=== PATIENT | male | born 1940 | race Caucasian/White ===

== ENCOUNTER 2023-12-31 08:33 | Outpatient (RCR) | payer MEDICARE, SELFPAY | END 2023-12-31 23:59 | disposition home or self-care (01) | LOC: RPT 08:33 | PROVIDERS: ATTENDING PHYSICIAN Physical Medicine & Rehabilitation; FAMILY PHYSICIAN Internal Medicine | DX: R26.2 Difficulty in walking, not elsewhere classified (principal); M75.01 Adhesive capsulitis of right shoulder; M25.511 Pain in right shoulder; Z73.6 Limitation of activities due to disability | CPT/HCPCS: 97110; 97161 ==

== ENCOUNTER 2024-01-29 13:54 | Outpatient (RCR) | payer MEDICARE, SELFPAY | END 2024-01-29 23:59 | disposition home or self-care (01) | LOC: RPT 13:54 | PROVIDERS: ATTENDING PHYSICIAN Physical Medicine & Rehabilitation; FAMILY PHYSICIAN Internal Medicine | DX: M75.01 Adhesive capsulitis of right shoulder (principal); M25.511 Pain in right shoulder; Z73.6 Limitation of activities due to disability | CPT/HCPCS: 97010; 97110; 97112; 97140 ==

== ENCOUNTER 2024-07-25 16:06 | Emergency (ER) | payer MEDICARE, SELFPAY ==
[2024-07-25 16:29] VITALS: BP 167/87
--- NOTE | 2024-07-25 17:50 | ED.GENMED ---
History of Present Illness
General
Chief Complaint: Skin Surface Trauma
Source: patient
Exam Limitations: none
Time Seen by Provider: 07/25/24 17:20
Nursing documentation reviewed up to this point in time: agreed with
History of Present Illness
History of Present Illness:
PT IS A 84 Y/O M
h/o AAA, afib on warfarin, CAD
here with skin tear L anterior lower leg whne he slipped off a chair he was standing on and scraped his rivera against the chair
he had bleedin but it is controlled
tetanus is likeyl UTD according to
no head injury, weakness, numbness to the leg
has chornic PVD and poor skin wound healing by history
Past History
Past History
ED Past Medical History: Arrthythmia (afiub), CAD, Cancer (Prostate) and Other (AAA,)
ED Past Surgical History: Urological
Social History
Tobacco: Former smoker
Personal:
Living: with family
Review of Systems
Review of Systems
Allergies reviewed?: Yes
All Other Systems: Not applicable
Phy Exam
Physical Exam
Physical Exam:
GENERAL: Alert , in no apparent distress, comfortable at rest
HEAD: NCAT
CV: 2+ DP PULSES B/L palpable pulses, warm foot
NEUROLOGICAL: Alert and oriented, no focal neuro deficits, , 5/5 strength, sensation intact, ambulation slight limp right leg
SKIN: Warm and dry, chornic hyperpigemtnation assicated with PVD skin changes
flap skin tear approx 7 cm L anterior rivera
no bleeding
MUSCULOSKELETAL: full ROM knee, ankle foot on L
PSYCH: Normal and appropriate interaction.
Course
Vital Signs
Initial and Last Documented VS:
Initial Vital Signs
Temp Pulse Resp BP Pulse Ox
36.5 C 79 18 167/87 96
07/25/24 16:29 07/25/24 16:29 07/25/24 16:29 07/25/24 16:29 07/25/24 16:29
Last Documented Vital Signs
Temp Pulse Resp BP Pulse Ox
36.5 C 79 18 167/87 96
07/25/24 16:29 07/25/24 16:29 07/25/24 16:29 07/25/24 16:29 07/25/24 16:29
MDM/Problems Addressed
Differential Diagnosis Includes:
laceration, skin tear
MDM/Problems Addressed:
84 y/o M
on warfarin
here with skin tear LLL today
bleeding stopped
slid off a chair
denied hitting head
wound has a superficial flap that is too thin for sutures, it tears when trying to stretch it over the wound
instead, irreigated and sterristripped and dressed with nonstick dressing
wound care instructions
inr just checked; slightly low; on his warfarin dose
*Critical Care Note
Total Time (30-74mins, 75-104mins- exclusive of procedures): Not Applicable
ED Attending Note
-
Portions of this chart may have been created with voice recognition software.� Occasional wrong word or��sound alike� substitutions may have occurred due to the inherent limitations of voice recognition software.
Discharge Plan
Departure
Patient Disposition: Home (Routine Discharge)
Date of Disposition: 07/25/24
Time of Disposition: 18:05
Patient with high blood pressure during this ER visit?: Yes
Condition: Fair
Discharge Problem:
Noninfected skin tear of left leg
Instructions: Wound Care (DC), BLOOD PRESSURE
Referrals:
Hipolito Jorge MD [Family Provider] - Follow up in 2-3 days
Activity Restrictions/Additional Instructions:
KEEPT HE WOUND CLENA AND DRY FOR 2 DAYS AND KEEP IT COVERED
AFTER THAT YOU CAN GET THE WOUND WET IN THE SHOWER
THE STERRISTRIPS WILL PEEL UP AND FALL OFF IN 3-5 DAYS
FOLLOW UP WITH YOUR FAMILY DOCTOR NEEEDED FOR WOUND CARE OR SEE THE WOUND CARE CENTER
RETURN FOR ANY COCNERNS.
Interventions
Interventions:
ED-Skin Assessment Last Done: 07/25/24 17:29
Discharge Date and Time
Print Language: SLOVAK
== END 2024-07-25 18:26 | disposition home or self-care (01) ==
LOC: EMR 16:06
PROVIDERS: EMERGENCY PHYSICIAN Emergency Medicine; FAMILY PHYSICIAN Internal Medicine
DX: S81.812A Laceration without foreign body, left lower leg, initial encounter (principal); L08.9 Local infection of the skin and subcutaneous tissue, unspecified; W22.8XXA Striking against or struck by other objects, initial encounter; I25.10 Atherosclerotic heart disease of native coronary artery without angina pectoris; I48.91 Unspecified atrial fibrillation; I73.9 Peripheral vascular disease, unspecified; Z79.01 Long term (current) use of anticoagulants; Z87.891 Personal history of nicotine dependence; Z86.79 Personal history of other diseases of the circulatory system
CPT/HCPCS: 99282

== ENCOUNTER 2024-12-30 18:43 | Inpatient (IN) | payer MEDICARE, SELFPAY ==
[2024-12-30] VITALS (7 sets, daily range): BP systolic 102–138; BP diastolic 66–71; BMI 25.1; BMI 24.3
[2024-12-30 13:16] LABS: % Basophils 0.1 % (0-2); % Eosinophils 0.3 % (0-6); % Immature Granulocytes 0.6 % (0-0.5); % Lymphocytes 9.4 % (20.5-51.1); % Monocytes 9.4 % (1.7-9.3); % Neutrophils 80.2 % (42.2-75.2); Absolute Immature Granulocytes 0.1 10^3/uL (0-0.05); Absolute Neutrophils 8.2 10^3/uL (1.4-6.5); Hematocrit 46.1 % (39.0-52.0); Hemoglobin 16.6 g/dL (13.0-18.0); Mean Corpuscular Hgb 32.2 pg (27.0-31.0); Mean Corpuscular Volume 89.5 fL (80.0-94.0); Mean Platelet Volume 9.5 fL (7.4-10.4); Nucleated Red Blood Cells % 0 % (-); Platelet Count 205 10^3/uL (130-400); Red Blood Cell Count 5.15 10^6/uL (4.70-6.10); Red Cell Dist. Width 13.2 % (11.5-14.5); White Blood Cell Count 10.2 10^3/uL (4.8-10.8)
[2024-12-30 13:30] LABS: PT 75.3 Sec (11.4-14.6)
[2024-12-30 13:38] LABS: NT-proBNP 776 pg/ml
[2024-12-30 14:04] LABS: ALT (SGPT) 33 U/L (0-50); AST (SGOT) 27 U/L (17-59); Albumin 3.7 g/dl (3.5-5.0); Alkaline Phosphatase 83 U/L (38-126); Blood Urea Nitrogen 48 mg/dl (9-20); Calcium 8.7 mg/dl (8.4-10.2); Carbon Dioxide 20 mmol/L (22-30); Chloride 110 mmol/L (98-107); Glucose 111 mg/dl (70-99); Potassium 3.9 mmol/L (3.5-5.1); Sodium 137 mmol/L (135-145); Total Bilirubin 1.1 mg/dl (0.2-1.3); Total Protein 6.2 g/dl (6.3-8.2)
[2024-12-30 14:05] LABS: INR > 8.0
--- NOTE | 2024-12-30 15:24 | ED.GENMED ---
History of Present Illness
General
Chief Complaint: Breathing Problem
Source: patient, spouse and family
Exam Limitations: none
Time Seen by Provider: 12/30/24 14:59
Nursing documentation reviewed up to this point in time: agreed with
History of Present Illness
History of Present Illness:
84-year-old male COPD not on home oxygen not on chronic steroids his cough and shortness of breath for a month took a Medrol Dosepak, with some relief, given an inhaler which she did not use, no antibiotics said a 6 pound weight loss, sleeping a lot
not eating General Malaise pulse ox 88% with loss of taste and appetite, additionally his INR is elevated told not to take his Coumadin for few days said no overt bleeding no falls
Past History
Past History
ED Past Medical History: Arrthythmia (afiub), CAD, Cancer (Prostate), COPD and Other (AAA,)
ED Past Surgical History: Urological
Social History
Tobacco: Former smoker
Alcohol: None
Drug: None
Personal:
Living: with family
Employment: Retired
Review of Systems
Review of Systems
All Other Systems: Not applicable
Constitutional: Reports fatigue; Denies chills
Respiratory: Reports cough and trouble breathing
Cardiac: Reports no symptoms
ABD/GI: Reports anorexia
: Reports no symptoms
Musculoskeletal: Reports no symptoms
Skin: Reports no symptoms
Neurological: Reports weakness
Endocrine: Reports no symptoms
Hematologic/Lymphatic: Reports no symptoms
Phy Exam
Physical Exam
Physical Exam:
Physical Exam
General: Dyspneic male
Neck: No JVD
Heart: Irregular
Lungs: Wheezing the right base
Abdomen: Not tender
Neuro: alert and oriented. no focal neurological deficits
Skin: no rash
Psychiatric: well kept. interactive and cooperative
Extremities: no edema. no calf tenderness.
Scores
Heart Failure Risk
Heart Failure Risk Score: Not Applicable
Course
Orders/Labs/Results
Orders:
Orders
12/30/24 12:54
EKG [Electrocardiogram (*1)] Urgent
Reason for Study: Shortness of Breath
EKG- Treatment ONCE
CXR2 [CR Chest - 2 Views ] Urgent
Comment:
Reason For Exam: SOB/cough
12/30/24 13:06
CMP [Comprehensive Metabolic Panel] Urgent
Complete Blood Count/With Diff Urgent
INR [Prothrombin Time] Urgent
NT-proBNP Urgent
12/30/24 15:16
CefTRIAXone [Rocephin] 1,000 mg IV NOW STA
Doxycycline [Vibramycin] 100 mg PO NOW STA
12/30/24 15:17
Sputum Culture [Respiratory Culture/Gram Stain] Urgent
JASVIR Source: Sputum
Specimen Description:
Ipratropium/Albuterol Sulfate [Duoneb] 3 ml INH R NOW STA
12/30/24 15:19
COVID-19 Antigen Urgent
Source: Nasal Swab
Influenza A+B Rapid Molecular Urgent
JASVIR Source: Nasal Swab
Specimen Description:
Dexamethasone Sod Phosphate [Decadron] 10 mg IV NOW STA
12/30/24 15:30
Blood Culture Q30M
JASVIR Source: Blood/Venous
Specimen Description:
12/30/24 16:00
Blood Culture Q30M
JASVIR Source: Blood/Venous
Specimen Description:
Abnormal Lab Results
12/30/24
13:06
MCH 32.2 H pg
(27.0-31.0)
Abs Immat Gran (auto) 0.1 H 10^3/uL
(0-0.05)
Absolute Neuts (auto) 8.2 H 10^3/uL
(1.4-6.5)
Absolute Lymphs (auto) 1.0 L 10^3/uL
(1.2-3.4)
Absolute Monos (auto) 1.0 H 10^3/uL
(0.1-0.6)
Immature Gran % 0.6 H %
(0-0.5)
Neutrophils % 80.2 H %
(42.2-75.2)
Lymphocytes % 9.4 L %
(20.5-51.1)
Monocytes % 9.4 H %
(1.7-9.3)
PT 75.3 H Sec
(11.4-14.6)
INR > 8.0 H*
Chloride 110 H mmol/L
(98-107)
Carbon Dioxide 20 L mmol/L
(22-30)
BUN 48 H mg/dl
(9-20)
Creatinine 1.6 H mg/dL
(0.7-1.3)
Glucose 111 H mg/dl
(70-99)
Total Protein 6.2 L g/dl
(6.3-8.2)
12/30/24 13:06
12/30/24 13:06
Vital Signs
Initial and Last Documented VS:
Initial Vital Signs
Temp Pulse Resp BP Pulse Ox
98.2 F 93 18 119/68 93
12/30/24 12:56 12/30/24 12:56 12/30/24 12:56 12/30/24 12:56 12/30/24 12:56
Last Documented Vital Signs
Temp Pulse Resp BP Pulse Ox
98.2 F 71 16 122/71 95
12/30/24 12:56 12/30/24 15:08 12/30/24 15:08 12/30/24 15:08 12/30/24 15:08
MDM/Problems Addressed
Differential Diagnosis Includes:
Pneumonia bronchitis doubt PE possibly heart failure
MDM/Problems Addressed:
Cough shortness of breath hypoxia
Chronic conditions affecting care: Cardiomyopathy, Arrhythmia and COPD
Acute Exacerbation and/or Progression of Chronic Illness: Cardiomyopathy and COPD
*Radiology
Radiology exam reviewed: radiology read reviewed
*Pulse Oximetry
Patient hypoxic: yes
Comment: 88
*EKG
Interpreted by ED Provider?: Yes
Interpretation: abnormal
Comparison EKG: no comparison EKG present
Heart Rate: 80
Rate: normal
Rhythm: a-fib
Ischemia: non-specific ST changes
*Wood Engraver Interpretation
Rate: normal
Interpretation: normal
Heart Rate: 80
Rhythm: a-fib
*Critical Care Note
Total Time (30-74mins, 75-104mins- exclusive of procedures): 30
Update Note
Update Note:
Update patient clinically with pneumonia confirmed radiographically been on steroids we will add inhalers, antibiotics low threshold to admit today severity of illness hypoxia
ED Attending Note
-
Portions of this chart may have been created with voice recognition software.� Occasional wrong word or��sound alike� substitutions may have occurred due to the inherent limitations of voice recognition software.
Discharge Plan
Departure
Referrals:
Hipolito Jorge MD [Family Provider, Internal Medicine]
Interventions
Interventions:
*General Assessment Last Done: 12/30/24 12:56
ED- Cardiac Assessment Last Done: 12/30/24 15:14
ED- Pulmonary Assessment Last Done: 12/30/24 15:14
Discharge Date and Time
Print Language: JAMAICAN
[2024-12-30] MEDS: DECADRON 10 MG IV (15:40)
[2024-12-30] MEDS: ROCEPHIN 1000 MG IV (15:41)
[2024-12-30] MEDS: DUONEB 3 ML INH ×2 (15:42→19:01)
[2024-12-30] MEDS: VIBRAMYCIN 100 MG PO (15:42)
[2024-12-30 16:49] LABS: COVID-19 Antigen Negative (Negative)
--- NOTE | 2024-12-30 17:11 | HPS.HSE ---
Family Physician
-
Family Physician: Hipolito Jorge MD
Chief Complaint
-
Cough, shortness of breath
History of Present Illness
This is a 84-year-old male patient with past medical history of A-fib on warfarin, COPD, Hx of prostate cancer who presents to the ED with concerns of cough and shortness of breath on exertion. He states that for the past 1 month he has been
experiencing a productive cough. Last Thursday he had seen his PCP who had started him on a steroid taper, Mucinex along with an albuterol inhaler which provided him with only mild relief. He denied any symptoms of fever, nausea/vomiting or
abdominal pain. He also denies any overt signs of bleeding. Last night, he noticed that his pulse ox was 88% and along with his shortness of breath which prompted him to present to the ED hospital. He does not use any oxygen at home at present but
was admitted to [facility] with similar complaints of cough/shortness of breath last year where he was sent home with oxygen therapy but has not needed to use it in a while.
He does admit to diarrhea during the past 1 week which has been improving.
He states that last night he was called by the customer logistics manager office and was told that his INR was high and to hold his warfarin until he is seen in the office.
Medical History
Past Medical History
Past Medical History: Reports Arrhythmia (Atrial fibrillation), CAD, Cancer (Prostate cancer), COPD, Hypercholesterolemia, Hypothyroidism and Other (AAA, COPD)
Past Surgical History: Reports Appendectomy, Cardiac (CABG) and Urological
Social History
Tobacco: Former Smoker (Smoked since 11 years of age with 1 pack/day, quit at 52yo)
Alcohol: Daily (Drinks 1 beer with dinner every day)
Drug: None
Personal:
Living: With Family
Family History
Family History: Not pertinent
Allergies / Home Medications
Allergies reflects when Allergies were last updated in [employer].
Home Medications with original date entered in [employer]
Allergy/Medication List:
Allergies
Allergy/AdvReac Type Severity Reaction Status Date / Time
codeine Allergy Unknown Unknown Verified 12/30/24 12:55
Home Medications
warfarin 5 mg tablet 5 mg PO DAILY 12/30/24
If medication reconciliation has not been performed, why?: Other (Med reconciliation pending)
Review of Systems
-
Constitutional: Denies Fever or Night Sweats
Respiratory: Reports Cough and Trouble Breathing
Cardiac: Denies Chest Pain
Abdomen/GI: Reports Diarrhea; Denies Abdominal Pain, Nausea or Vomiting
Hematologic/Lymphatic: Denies Bleeding
Physical Exam
Vital Signs
Vital Signs
Temp Pulse Resp BP Pulse Ox
98.2 F 73 16 108/66 94
12/30/24 12:56 12/30/24 16:15 12/30/24 15:30 12/30/24 16:00 12/30/24 16:15
Physical Exam
General: Well Developed and No Apparent Distress
HEENT: NormoCephalic and Anicteric
Respiratory: Wheezes (Left-sided wheezing)
Cardiac: S1/S2 and Regular Rhythm
GI: Soft, Non Tender and Non Distended
Musculoskeletal: No Clubbing, No Cyanosis and No Edema
Skin: Warm and Dry
Neuro: Awake, Alert and Oriented
Psych: Calm
Laboratory Results
-
12/30/24 13:06
12/30/24 13:06
Laboratory Results
PT 75.3 Sec (11.4-14.6) H 12/30/24 13:06
INR > 8.0 H* 12/30/24 13:06
Total Bilirubin 1.1 mg/dl (0.2-1.3) 12/30/24 13:06
AST 27 U/L (17-59) 12/30/24 13:06
ALT 33 U/L (0-50) 12/30/24 13:06
Alkaline Phosphatase 83 U/L (38-126) 12/30/24 13:06
Impression/Plan
-
IMPRESSION:This is a 84-year-old male patient with past medical history of A-fib on warfarin, COPD, Hx of prostate cancer who presents to the ED with concerns of cough and shortness of breath on exertion.
PLAN:
#Shortness of breath likely due to COPD exacerbation
� CXR:Ill-defined left basilar opacity, scarring versus pneumonia.
� COVID/flu negative, proBNP 776
- Did not seem to be very likely pneumonia with no elevated white count, imaging findings not strongly suggestive of PNA, more so COPD exacerbation
� Will order DuoNebs
� Start doxycycline
� Start IV dexamethasone 4 Mg every 8
� CT chest without contrast ordered
�Sputum culture/blood culture pending
- Continue supplemental O2
#SARAI likely prerenal
� Could be due to volume loss due to recent diarrheal episodes this past week
� Hold Lasix (patient unclear as to why he is taking Lasix, no pedal edema likely for CHF)
-Will hold off on IVF at this time due to patient shortness of breath
� Monitor creatinine
#Atrial fibrillation
-EKG: atrial flutter
� INR elevated at 8
� Hold warfarin
� Check PT/INR in AM.
�Continue diltiazem
#Hypothyroidism
� Continue levothyroxine
#Hyperlipidemia
� Continue Zetia, statin
#CAD
� Continue ASA
#Hx prostate cancer
#AAA
DVT PPx�SCDs
Full code
--- NOTE | 2024-12-30 18:24 | W.PN.UPDATE ---
Update Note
Progress Note Update
I personally performed a history and physical exam of the patient and discussed management with the resident. I reviewed the resident's note and agree with the documented findings and plan of care HPI/CC.
It is a but yeah patient is a 84-year-old male with past medical history of COPD, history of intubation for flareup, history of hypoxic respiratory failure, atrial flutter/fibrillation on warfarin, hypothyroidism, hyperlipidemia came to ER for
having persistent shortness of breath. Patient has been following up with [facility] for for few years now and has done PFT in the past. Patient usually feel dyspneic after exertion. Last year patient required ICU stay with intubation
post COPD flareup, patient was discharged on oxygen and was able to be weaned off of it. Currently patient does not require any oxygen at baseline. For last few weeks patient was having some increased phlegm production with shortness of breath.
Patient was seen by primary care physician and was prescribed a short course of steroid which patient finished. Patient did not have much improvement in symptoms and of follow-up chest x-ray was done which did not show any major problematic
findings. Patient was asked to come to ER for further evaluation.
HEENT: No pallor, cyanosis, or jaundice. Throat clear.
NECK: Supple. No JVD.
RESPIRATORY: wheezing
CVS: S1, S2 normal. RRR. No murmur, rub or gallop.
ABDOMEN: Soft, non-tender. No distension. BS+/normal.
EXTREMITIES: No peripheral cyanosis or edema.
FORM DRAFTER: AOx3. No focal deficits.
COPD flare up
Acute hypoxic respiratory insufficiency
- Chest x-ray reviewed and no signs of overt pneumonia
- Patient wheezing on exam
- Start on IV Decadron 4 mg every 8, already got 10 mg in ER
- Maintain on nebulizer therapy
- CT chest without contrast for further assessment of lung parenchyma
- Admit to telemetry
- Pulmonology consult for further help
Hypothyroidism
- Maintain on home dose of levothyroxine once patient family can bring medication list
A-fib/flutter
- Presumed paroxysmal currently in sinus rhythm
- Patient on diltiazem dose of which is unknown. Needs to be restarted once information available
Supratherapeutic INR
- Patient takes warfarin managed by Coumadin clinic at [facility]
- No recent change in warfarin dose
- Likely with steroid use
- INR greater than 8, no bleeding diathesis and does not require reversal with vitamin K/Kcentra
- Continue follow-up INR
Full code
Total time spent : 80 mins
I personally saw and examined the patient.
I have reviewed all diagnostic interpretations and treatment plans as written.
Time includes patient management by me, time spent at the patients bedside, time to review lab and imaging results, discussing patient care, documentation in the medical record, and time spent with the family or caregiver and discussing care plan
with RN/Consultants.
[2024-12-30] MEDS: DUONEB INH (20:20)
[2024-12-30] MEDS: MUCINEX 600 MG PO (20:42)
[2024-12-30] MEDS: TESSALON PERLES 100 MG PO (21:18)
[2024-12-30] MEDS: LIPITOR 20 MG PO (22:21)
[2024-12-30] MEDS: DECADRON 4 MG IV (23:42)
[2024-12-31] VITALS (9 sets, daily range): BP systolic 107–145; BP diastolic 64–79
[2024-12-31] MEDS: TESSALON PERLES 100 MG PO ×3 (02:23→17:29)
[2024-12-31] MEDS: SYNTHROID 75 MCG PO (06:04)
[2024-12-31] MEDS: DUONEB 3 ML INH ×4 (07:57→18:19)
[2024-12-31 08:48] LABS: PT 69.6 Sec (11.4-14.6)
[2024-12-31 08:57] LABS: INR > 8.0
[2024-12-31 08:58] LABS: % Immature Granulocytes 0.4 % (0-0.5); % Lymphocytes 7.4 % (20.5-51.1); % Monocytes 1.5 % (1.7-9.3); % Neutrophils 90.7 % (42.2-75.2); Absolute Lymphocytes 0.5 10^3/uL (1.2-3.4); Absolute Monocytes 0.1 10^3/uL (0.1-0.6); Absolute Neutrophils 6.5 10^3/uL (1.4-6.5); Hematocrit 43.7 % (39.0-52.0); Hemoglobin 15.6 g/dL (13.0-18.0); Mean Corp Hgb Conc. 35.7 g/dL (33.0-37.0); Mean Corpuscular Hgb 32.2 pg (27.0-31.0); Mean Corpuscular Volume 90.1 fL (80.0-94.0); Mean Platelet Volume 9.9 fL (7.4-10.4); Nucleated Red Blood Cells % 0 % (-); Platelet Count 205 10^3/uL (130-400); Red Blood Cell Count 4.85 10^6/uL (4.70-6.10); Red Cell Dist. Width 12.9 % (11.5-14.5); White Blood Cell Count 7.2 10^3/uL (4.8-10.8)
[2024-12-31] MEDS: LOW STRENGTH ASPIRIN 81 MG PO (09:33)
[2024-12-31] MEDS: CARDIZEM CD 180 MG PO (09:33)
[2024-12-31] MEDS: DECADRON 4 MG IV ×3 (09:33→23:25)
[2024-12-31] MEDS: ZETIA 10 MG PO (09:35)
[2024-12-31] MEDS: IMDUR (EXTENDED RELEASE) 30 MG PO (09:35)
[2024-12-31] MEDS: VIBRAMYCIN 100 MG PO ×2 (09:36→21:22)
[2024-12-31] MEDS: MUCINEX 600 MG PO ×2 (09:36→21:22)
[2024-12-31 09:39] LABS: Blood Urea Nitrogen 36 mg/dl (9-20); Calcium 8.6 mg/dl (8.4-10.2); Carbon Dioxide 20 mmol/L (22-30); Chloride 110 mmol/L (98-107); Estimated Creatinine Clearance 44 ml/min; Glucose 140 mg/dl (70-99); Potassium 4.1 mmol/L (3.5-5.1); Sodium 139 mmol/L (135-145); eGFR 58.89
--- NOTE | 2024-12-31 12:28 | W.PN.HOSP.TC ---
Today's Communication/Plan
-
Maintenance steroids/nebulizer therapy
CT chest images reviewed
Wean off oxygen as possible
Continue on doxycycline as part of COPD treatment
Assessment / Plan
Assessment / Plan
COPD flare up
Acute hypoxic respiratory insufficiency
- Chest x-ray reviewed and no signs of overt pneumonia
- Patient wheezing on exam in er, it has improved today on exam
- Start on IV Decadron 4 mg every 8, already got 10 mg in ER
- Maintain on nebulizer therapy
- CT chest without contrast images reviewed which showed significant bilateral emphysematous changes involving upper lobes bilaterally. Lower lobe showing some infiltrate with question of pneumonia although clinically not impressive.
- Admit to telemetry
- Pulmonology consult for further help
Hypothyroidism
- Maintain on home dose of levothyroxine once patient family can bring medication list
A-fib/flutter
- Presumed paroxysmal currently in sinus rhythm
- Patient on diltiazem dose of which is unknown. Needs to be restarted once information available
Supratherapeutic INR
- Patient takes warfarin managed by Coumadin clinic at [place]
- No recent change in warfarin dose
- Likely with steroid use
- INR greater than 8, no bleeding diathesis and does not require reversal with vitamin K/Kcentra
- Continue follow-up INR
Full code
Total time spent : 52 mins
Anticipated Discharge: 24 - 48 hours
Subjective/Interval History
-
Date of Service: December 31, 2024
Resting comfortably in bed
Patient subjective feeling much improved
Remains on oxygen through nasal cannula
Objective Data
-
Labs:
Laboratory Results
12/31/24 12/31/24
08:02 08:03
WBC 7.2
Hgb 15.6
Hct 43.7
Plt Count 205
PT 69.6 H
INR > 8.0 H*
Sodium 139
Potassium 4.1
Chloride 110 H
Carbon Dioxide 20 L
BUN 36 H
Creatinine 1.2
Glucose 140 H
Calcium 8.6
Vital Signs:
Vital Signs
Temp Pulse Resp BP Pulse Ox
97.6 F 78 16 145/67 97
12/31/24 11:25 12/31/24 11:55 12/31/24 11:55 12/31/24 11:25 12/31/24 11:25
I&O
12/30/24 12/31/24 01/01/25
06:59 06:59 06:59
Intake Total 480 / 480
Output Total 500 / 500
Balance -20 / -20
Review of Systems
-
Respiratory: Denies Cough or Trouble Breathing
Cardiac: Reports No Symptoms
Abdomen/GI: Reports No Symptoms
Physical Exam
-
General: No Apparent Distress and Comfortable
HEENT: Oxygen
Respiratory: Clear to Auscultation
Cardiac: Regular Rhythm and S1/S2; Negative Murmur or Rub
GI: Soft, Nontender, Nondistended and Normal Bowel Sounds
Musculoskeletal: No Edema
Neuro: Awake, Alert, Oriented, No Motor Deficits and Nonfocal/Grossly Intact
Psych: Calm
--- NOTE | 2024-12-31 13:20 | CON.PUL ---
Consultation
Consultation Request
Date/Time Consultation Requested: 12/30/2024 - 2015
Date/Time Consultation Performed: 12/31/2024 - 1244
Requesting Provider: Dr. Goldstein
Performing Provider: Dr. Cedeno
Reason for Consultation: COPD/Cough
Medical History
-
Chief Complaint: Cough
History of Present Illness:
84-year-old male former tobacco smoker with 36-[id number]-qhzh history with a past medical history of COPD, A-fib on Coumadin, prostate cancer, hypercholesterolemia, AAA and hypothyroidism who presents with cough and shortness of breath. Has had a cough
for about a month. PCP started him a steroid taper last week in addition to albuterol and Mucinex which minimally improved his symptoms. He does not use oxygen at home. He follows with a cardiovascular tech at [facility], Dr. Alberto. He
has had diarrhea for the past week but has been improving. Here in the ER he was afebrile. His INR was >8, creatinine 1.6, and COVID-19 antigen negative. Flu swab negative and blood cultures collected. Imaging showed retrocardiac opacity, and CT
chest shows severe upper lobe predominant emphysema with significant bronchial wall thickening in the lower lobes with bibasilar opacification significant for a bronchopneumonia. Given ceftriaxone, Doxy, DuoNebs and Decadron in the ER. Admitted to
the hospitalist service and pulmonary service now consulted for additional management/recommendations.
When I saw the patient he was resting in bed in no acute distress. He states he is breathing better as of today. He takes Spiriva and as needed albuterol as an outpatient for his COPD. He has a cough which is sometimes productive of phlegm. He
would like something to help reduce his cough. Despite his history of COPD, he walks about 1 mile per day, per patient. He currently denies chest pain, VERMA, nausea, fevers or chills.
PMHx: A-fib on Coumadin, COPD/emphysema, history of prostate cancer, hypercholesterolemia, hypothyroidism, AAA
PSHx: Appendectomy, CABG
Past Medical History
Past Medical History: Other (Above as per HPI)
Past Surgical History: Other (Above as per HPI)
Social History
Tobacco: Former Smoker (29-ggck-oanw history, quit at age 52)
Alcohol: Daily (1 beer with dinner daily)
Drug: None
Personal:
Living: With Family
Family History
Family History: Reviewed & Not Pertinent
Allergies / Home Medications
Allergies
Allergy/AdvReac Type Severity Reaction Status Date / Time
codeine Allergy Unknown Verified 12/30/24 20:57
Home Medications
�Medication �Instructions �Recorded �Confirmed �Last Taken �Type
aspirin 81 mg tablet 81 mg PO DAILY Blood Clot 12/30/24 12/30/24 12/30/24 08:00 History
Prevention/Tx
atorvastatin 20 mg tablet 20 mg PO HS High Cholesterol 12/30/24 12/30/24 12/29/24 20:00 History
diltiazem HCl 180 mg 180 mg PO DAILY Blood Pressure 12/30/24 12/30/24 12/30/24 08:00 History
capsule,extended release 24 hr
(Cardizem CD)
ezetimibe 10 mg tablet (Zetia) 10 mg PO DAILY High Cholesterol 12/30/24 12/30/24 12/30/24 08:00 History
isosorbide mononitrate 30 mg 30 mg PO DAILY Blood Pressure 12/30/24 12/30/24 12/30/24 08:00 History
tablet,extended release 24 hr
levothyroxine 75 mcg tablet 75 mcg PO DAILY@06 Thyroid 12/30/24 12/31/24 12/30/24 06:00 History
warfarin 5 mg tablet 5 mg PO DAILY Blood Clot 12/30/24 Unknown History
Prevention/Tx
Review of Systems
-
History Source: Patient
All other systems: Negative unless noted
Vitals / Labs / Diagnostic Testing
Vital Signs
Temp Pulse Resp BP Pulse Ox
97.6 F 72 16 111/73 96
05/31/25 07:25 12/31/24 08:00 12/31/24 08:00 12/31/24 07:25 12/31/24 08:00
Lab Data
12/31/24 08:02
12/31/24 08:03
Laboratory Results
12/30/24 12/31/24
13:06 08:03
PT 75.3 H 69.6 H
INR > 8.0 H* > 8.0 H*
Microbiology
12/30/24 17:14 Sputum Gram Stain - Preliminary
12/30/24 15:50 Nasal Swab Influenza Types A & B (HONORIO) - Final
Negative for Influenza A & B, NAAT
Negative results must be combined with clinical observations
and patient history.
Nucleic Acid Amplification test (NAAT)performed on the
[employer] platform.
Diagnostic Testing:
Physical Exam
-
HEENT: Normocephalic and Anicteric
Cardiovascular: S1/S2 and Peripheral Edema (n)
Respiratory: Wheeze ([place] bilaterally upon expiration (mild)), Rales (n), Rhonchi (Right base) and Non-Labored Respirations
GI: Soft, Non Distended, Non Tender and Normal Bowel Sounds
Neurology: AO x 3 and Tremors (n)
Skin: Warm and Dry
General: Respiratory Distress (n), Comfortable, Chills (n) and Sweats (n)
Assessment
-
Assessment: 84-year-old male former tobacco smoker with 60-xarl-obkg history with a past medical history of COPD/emphysema, A-fib on Coumadin, prostate cancer, hypercholesterolemia, AAA and hypothyroidism who presents with cough and shortness of
breath. Has had a cough for about a month. PCP started him a steroid taper last week in addition to albuterol and Mucinex which minimally improved his symptoms. He does not use oxygen at home. He follows with a cardiovascular tech at [facility], Dr. Alberto. He has had diarrhea for the past week but has been improving. Here in the ER he was afebrile. His INR was >8, creatinine 1.6, and COVID-19 antigen negative. Flu swab negative and blood cultures collected. Imaging showed
retrocardiac opacity, and CT chest shows severe upper lobe predominant emphysema with significant bronchial wall thickening in the lower lobes with bibasilar opacification significant for a bronchopneumonia. Given ceftriaxone, Doxy, DuoNebs and
Decadron in the ER. Admitted to the hospitalist service and pulmonary service now consulted for additional management/recommendations.
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
Impression:
#Severe bilateral lower lobe bronchopneumonia
#Severe emphysema with COPD exacerbation due to above
#Former tobacco smoker with 71-saih-hkcv history, quit at age 52
#Supratherapeutic INR
#Atrial fibrillation on Coumadin
#SARAI
Plan:
- Continue with antibiotics, and he should be on a beta-lactam--> I will add ceftriaxone in addition to his doxycycline
- She gets 7 days total of antibiotics
- Follow-up blood cultures and respiratory culture; check Legionella + strep pneumoniae urine antigens
- Mucolytics
- Aspiration precautions
- Tessalon perles
- Continue with systemic steroids, weaning as he clinically improves
- Continue DuoNebs with prn nebulized bronchodilators
- He says he takes Spiriva and prn albuterol at home; follows with Dr. Alberto with [facility] and he should continue following up with them after discharge
- Trend sCr and monitor UOP
- Renally dose all ABx and meds
- Maintain SpO2 88-94% with supplemental O2 and wean down as tolerated (currently on 2 L/min nasal cannula and does not use O2 at home)
- Incentive spirometer encouraged q1hr while awake
- Replete electrolytes with K>4, Mg>2
- Trend H/H and transfuse if needed to keep Hb>7g/dL; keep plt>20k, unless there is concern for bleeding then keep plt>50k
- Maintain euglycemia with goal BG >100 and <180
- DVT ppx
Pulmonary service will continue to follow along.
Data:
CT chest without contrast 12/31/2024:
1. SEVERE BILATERAL LOWER LOBE BRONCHITIS and MILD BILATERAL LOWER LOBE PNEUMONIA.
2. SEVERE BILATERAL UPPER LOBE EMPHYSEMA.
3. Severe calcific atherosclerotic plaque in the [place] coronary arteries and thoracic aorta.
4. Previous CABG surgery.
5. Small solid pulmonary nodules (7.4 mm in the lingula).
Total time spent today was 58 minutes for this encounter. Time includes reviewing laboratory test/imaging results, reviewing pertinent medical records, obtaining and reviewing medical history, performing an appropriate exam, ordering medications,
tests and procedures. Time also includes documentation of this encounter, coordinating patient care and communicating with other healthcare professionals. Total time does not include separately billed tests performed on this date of service.
Patient seen and evaluated on 12/31/2024
[2024-12-31] MEDS: LIPITOR 20 MG PO (21:22)
[2024-12-31] MEDS: ROCEPHIN 1000 MG IV (21:22)
[2024-12-31] MEDS: STERILE WATER FOR INJECTION 10 ML IV (21:23)
[2024-12-31] MEDS: TUMS CHEWABLE TABLET 200 MG PO (23:25)
[2025-01-01] MEDS: TESSALON PERLES 100 MG PO (00:01)
[2025-01-01 03:32] VITALS: BP 110/61
[2025-01-01] MEDS: SYNTHROID 75 MCG PO (05:15)
[2025-01-01] MEDS: DUONEB 3 ML INH ×4 (07:28→19:56)
[2025-01-01 07:48] VITALS: BP 112/68
[2025-01-01 08:01] LABS: % Immature Granulocytes 0.8 % (0-0.5); % Monocytes 3.9 % (1.7-9.3); % Neutrophils 89.3 % (42.2-75.2); Absolute Immature Granulocytes 0.1 10^3/uL (0-0.05); Absolute Lymphocytes 0.5 10^3/uL (1.2-3.4); Absolute Monocytes 0.3 10^3/uL (0.1-0.6); Absolute Neutrophils 6.9 10^3/uL (1.4-6.5); Hematocrit 39.9 % (39.0-52.0); Hemoglobin 14.6 g/dL (13.0-18.0); Mean Corp Hgb Conc. 36.6 g/dL (33.0-37.0); Mean Corpuscular Hgb 32.4 pg (27.0-31.0); Mean Corpuscular Volume 88.5 fL (80.0-94.0); Mean Platelet Volume 9.7 fL (7.4-10.4); Nucleated Red Blood Cells % 0 % (-); Platelet Count 186 10^3/uL (130-400); Red Blood Cell Count 4.51 10^6/uL (4.70-6.10); Red Cell Dist. Width 12.8 % (11.5-14.5); White Blood Cell Count 7.7 10^3/uL (4.8-10.8)
[2025-01-01 08:28] LABS: Blood Urea Nitrogen 37 mg/dl (9-20); Calcium 8.8 mg/dl (8.4-10.2); Carbon Dioxide 22 mmol/L (22-30); Chloride 110 mmol/L (98-107); Estimated Creatinine Clearance 41 ml/min; Glucose 134 mg/dl (70-99); PT 65.1 Sec (11.4-14.6); Sodium 138 mmol/L (135-145)
[2025-01-01 08:30] LABS: INR 7.99
[2025-01-01] MEDS: DECADRON 4 MG IV ×3 (08:51→23:07)
[2025-01-01] MEDS: TESSALON PERLES 200 MG PO ×3 (08:54→21:21)
[2025-01-01] MEDS: LOW STRENGTH ASPIRIN 81 MG PO (08:55)
[2025-01-01] MEDS: MUCINEX 600 MG PO (08:55)
[2025-01-01] MEDS: VIBRAMYCIN 100 MG PO ×2 (08:55→21:21)
[2025-01-01] MEDS: ZETIA 10 MG PO (08:55)
[2025-01-01] MEDS: IMDUR (EXTENDED RELEASE) 30 MG PO (08:55)
[2025-01-01] MEDS: CARDIZEM CD 180 MG PO (09:06)
[2025-01-01 11:17] VITALS: BP 104/57
--- NOTE | 2025-01-01 14:59 | W.PN.HOSP.TC ---
Today's Communication/Plan
-
wean off o2 as possible
maintain on steroids
continue abx per pulm
Assessment / Plan
Assessment / Plan
COPD flare up
Acute hypoxic respiratory insufficiency
- Chest x-ray reviewed and no signs of overt pneumonia
- Patient wheezing on exam in er, it has improved today on exam
- Start on IV Decadron 4 mg every 8, already got 10 mg in ER
- Maintain on nebulizer therapy
- CT chest without contrast images reviewed which showed significant bilateral emphysematous changes involving upper lobes bilaterally.
- Admit to telemetry
- Pulmonology following and help appreciated
Possible CAP
- was on doxy, rocephin started by pulm
- no clear causative organism found
Hypothyroidism
- Maintain on home dose of levothyroxine once patient family can bring medication list
A-fib/flutter
- Presumed paroxysmal currently in sinus rhythm
- Patient on diltiazem dose of which is unknown. Needs to be restarted once information available
Supratherapeutic INR
- Patient takes warfarin managed by Coumadin clinic at [place]
- No recent change in warfarin dose
- INR lowered down to 8, no bleeding diathesis and does not require reversal with vitamin K/Kcentra
- Continue follow-up INR
Full code
Anticipated Discharge: 24 - 48 hours
Subjective/Interval History
-
Date of Service: January 01, 2025
Patient remains dyspneic
Oxygen requirement is came down
Objective Data
-
Labs:
Laboratory Results
01/01/25
06:29
WBC 7.7
Hgb 14.6
Hct 39.9
Plt Count 186
PT 65.1 H
INR 7.99 H*
Sodium 138
Potassium 4.0
Chloride 110 H
Carbon Dioxide 22
BUN 37 H
Creatinine 1.3
Glucose 134 H
Calcium 8.8
Vital Signs:
Vital Signs
Temp Pulse Resp BP Pulse Ox
97.6 F 61 20 104/57 95
01/01/25 11:17 01/01/25 11:17 01/01/25 11:17 01/01/25 11:17 01/01/25 11:17
I&O
12/31/24 01/01/25 01/02/25
06:59 06:59 06:59
Intake Total 480 / 480 240 / 240
Output Total 500 / 500 1225 / 1225
Balance -20 / -20 -985 / -985
Review of Systems
-
Respiratory: Reports Cough and Trouble Breathing
Cardiac: Reports No Symptoms
Abdomen/GI: Reports No Symptoms
Physical Exam
-
HEENT: Oxygen (on 1L NC)
Respiratory: Wheezes
Cardiac: Regular Rhythm and S1/S2; Negative Murmur or Rub
Musculoskeletal: No Edema
Neuro: Awake, Alert, Oriented, No Motor Deficits and Nonfocal/Grossly Intact
Psych: Calm
--- NOTE | 2025-01-01 15:10 | W.PN.PUL3 ---
Today's Communication / Plan
-
Continue systemic steroids, weaning as he clinically improves
Broad-spectrum antibiotics to complete 7-day total course assuming he continues to clinically improve and remains afebrile for 48 hours prior to stopping
Recommend repeat imaging in 4-6 weeks to assure his pneumonia is improving/has resolved (he can get this done through his PCP or his private retail account executive at [facility])
Up OOB as tolerated
PT/OT
DuoNebs
Tessalon Perles
Mucolytics
Ambulatory pulse oximetry prior to discharge
Maintain SaO2 88-94%
Continue to trend INR
Outpatient pulmonary follow-up with his retail account executive at [facility], Dr. Alberto
Pulmonary will continue to follow along
Assessment
-
Assessment: 84-year-old male former tobacco smoker with 99-[id number]-lrjv history with a past medical history of COPD/emphysema, A-fib on Coumadin, prostate cancer, hypercholesterolemia, AAA and hypothyroidism who presents with cough and shortness of
breath. Has had a cough for about a month. PCP started him a steroid taper last week in addition to albuterol and Mucinex which minimally improved his symptoms. He does not use oxygen at home. He follows with a retail account executive at [facility], Dr. Alberto. He has had diarrhea for the past week but has been improving. Here in the ER he was afebrile. His INR was >8, creatinine 1.6, and COVID-19 antigen negative. Flu swab negative and blood cultures collected. Imaging showed
retrocardiac opacity, and CT chest shows severe upper lobe predominant emphysema with significant bronchial wall thickening in the lower lobes with bibasilar opacification significant for a bronchopneumonia. Given ceftriaxone, Doxy, DuoNebs and
Decadron in the ER. Admitted to the hospitalist service and pulmonary service now consulted for additional management/recommendations.
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
Impression:
#Severe bilateral lower lobe bronchopneumonia
#Severe emphysema with COPD exacerbation due to above
#Former tobacco smoker with 29-qbpg-uybs history, quit at age 52
#Supratherapeutic INR
#Atrial fibrillation on Coumadin
#SARAI
Plan:
- Continue with antibiotics with ceftriaxone + doxycycline
- Recommend 7 days total of antibiotics
- Follow-up blood cultures and respiratory culture; check Legionella + strep pneumoniae urine antigens
- Mucolytics
- Aspiration precautions
- Tessalon perles to help reduce burden of coughing spells which is sometimes frightening to the patient as he cannot catch his breath
- Recommend repeat imaging in 4-6 weeks to assure his pneumonia is improving/has resolved (he can get this done through his PCP or his private retail account executive at [facility])
- Continue with systemic steroids, weaning as he clinically improves (currently on Decadron 4 mg IV q8hr)
- Continue DuoNebs with prn nebulized bronchodilators
- He says he takes Spiriva and prn albuterol at home; follows with Dr. Alberto with [facility] and he should continue following up with them after discharge
- Trend sCr and monitor UOP
- Renally dose all ABx and meds
- Maintain SpO2 88-94% with supplemental O2 and wean down as tolerated (currently on 1 L/min nasal cannula from 2L/min yesterday, and does not use O2 at home)
- Incentive spirometer encouraged q1hr while awake
- Replete electrolytes with K>4, Mg>2
- Trend H/H and transfuse if needed to keep Hb>7g/dL; keep plt>20k, unless there is concern for bleeding then keep plt>50k
- Maintain euglycemia with goal BG >100 and <180
- PT/OT
- DVT ppx: Hold all anticoagulation given his INR is >7; continue to trend INR and pharmacy needs to confirm his Coumadin dose
Pulmonary service will continue to follow along. Check an ambulatory pulse oximetry prior to discharge, and have PT/OT eval him. Hopefully he can be discahrged in next 1-2 days. Recommend him to follow up with his retail account executive as an outpatient.
Data:
CT chest without contrast 12/31/2024:
1. SEVERE BILATERAL LOWER LOBE BRONCHITIS and MILD BILATERAL LOWER LOBE PNEUMONIA.
2. SEVERE BILATERAL UPPER LOBE EMPHYSEMA.
3. Severe calcific atherosclerotic plaque in the [place] coronary arteries and thoracic aorta.
4. Previous CABG surgery.
5. Small solid pulmonary nodules (7.4 mm in the lingula).
Total time spent today was 36 minutes for this encounter. Time includes reviewing laboratory test/imaging results, reviewing pertinent medical records, obtaining and reviewing medical history, performing an appropriate exam, ordering medications,
tests and procedures. Time also includes documentation of this encounter, coordinating patient care and communicating with other healthcare professionals. Total time does not include separately billed tests performed on this date of service.
Subjective Data
-
Date of Service:
Date of Service: January 01, 2025
Chief Complaint: Pulmonary Follow Up
Subjective:
Patient seen and evaluated today at bedside (late note entry). Patient's , Giuliana, daughter, Araceli, and [id number], Nancy, all present at bedside. Patient feels better, with improved cough. Coughing spells have also improved.
Currently on 1 L/min nasal cannula and denies shortness of breath at rest. He is eager to go home.
Review of Systems
General: Other (Negative unless mentioned above)
Objective Data
Data Reviewed
Vital Signs / I&O / Oxygen:
Vital Signs
Temp Pulse Resp BP Pulse Ox
97.5 F 98 20 112/68 94
01/01/25 07:48 01/01/25 07:48 01/01/25 07:48 01/01/25 07:48 01/01/25 07:48
Intake and Output
12/31/24 01/01/25 01/02/25
06:59 06:59 06:59
Intake Total 480 / 480 240 / 240
Output Total 500 / 500 1225 / 1225
Balance -20 / -20 -985 / -985
SaO2 94
Nasal Cannula flow liters per 1
minute
Physical Exam
General: Respiratory Distress (negative), Comfortable, Chills (negative) and Sweats (negative)
HEENT: Normocephalic and Anicteric
Cardiovascular: S1-S2 and Peripheral Edema (Trace lower extremity edema bilaterally)
Respiratory: Wheeze (negative), Crackles (Bibasilar), Rhonchi (negative) and Non-Labored Respirations
GI: Soft, Non Distended, Non Tender and Normal Bowel Sounds
Neurology: AO x 3 and Tremors (negative)
Skin: Warm, Dry, Cyanosis (negative) and Jaundice (negative)
Labs/Micro/Reports
Lab Data
01/01/25 06:29
01/01/25 06:29
Laboratory Results
01/01/25
06:29
PT 65.1 H
INR 7.99 H*
Microbiology
12/30/24 16:00 Blood/Venous Blood Culture - Preliminary
No Growth in 24 hours- Final report to follow
12/30/24 16:00 Blood/Venous Blood Culture - Preliminary
No Growth in 24 hours- Final report to follow
12/30/24 17:14 Sputum Respiratory Culture - Preliminary
Usual Respiratory Denise
12/30/24 17:14 Sputum Gram Stain - Preliminary
12/30/24 15:50 Nasal Swab Influenza Types A & B (HONORIO) - Final
Negative for Influenza A & B, NAAT
Negative results must be combined with clinical observations
and patient history.
Nucleic Acid Amplification test (NAAT)performed on the
[employer] platform.
[2025-01-01] MEDS: TUMS CHEWABLE TABLET 200 MG PO ×2 (15:14→21:21)
[2025-01-01 15:15] VITALS: BP 128/65
[2025-01-01 19:18] VITALS: BP 131/77
[2025-01-01] MEDS: ROCEPHIN 1000 MG IV (21:22)
[2025-01-01] MEDS: LIPITOR 20 MG PO (21:22)
[2025-01-01] MEDS: MUCINEX PO ×2 (21:22→21:30)
[2025-01-01] MEDS: STERILE WATER FOR INJECTION 10 ML IV (21:22)
--- NOTE | 2025-01-01 22:00 | PTCARENOTE ---
Patient and family requested that patient be walked in the halls if at all possible. AAOx3, VSS. Patient ambulated in the halls with assistance on 1L O2 NC for about 10 minutes. Tolerated ambulation well. Back in bed, call gonzalez is within reach.
[2025-01-01 23:14] VITALS: BP 126/91
[2025-01-02 03:00] VITALS: BP 117/58
[2025-01-02] MEDS: SYNTHROID 75 MCG PO (06:02)
[2025-01-02 07:31] VITALS: BP 134/75
[2025-01-02] MEDS: DUONEB 3 ML INH ×2 (07:49→11:42)
[2025-01-02 08:04] LABS: PT 51.4 Sec (11.4-14.6)
[2025-01-02 08:07] LABS: INR 5.85
[2025-01-02 08:18] LABS: % Basophils 0.1 % (0-2); % Lymphocytes 5.7 % (20.5-51.1); % Neutrophils 89.2 % (42.2-75.2); Absolute Immature Granulocytes 0.1 10^3/uL (0-0.05); Absolute Lymphocytes 0.5 10^3/uL (1.2-3.4); Absolute Monocytes 0.3 10^3/uL (0.1-0.6); Absolute Neutrophils 7.4 10^3/uL (1.4-6.5); Hematocrit 42.5 % (39.0-52.0); Hemoglobin 15.1 g/dL (13.0-18.0); Mean Corp Hgb Conc. 35.5 g/dL (33.0-37.0); Mean Corpuscular Hgb 32.3 pg (27.0-31.0); Mean Corpuscular Volume 90.8 fL (80.0-94.0); Mean Platelet Volume 9.6 fL (7.4-10.4); Nucleated Red Blood Cells % 0 % (-); Platelet Count 225 10^3/uL (130-400); Red Blood Cell Count 4.68 10^6/uL (4.70-6.10); Red Cell Dist. Width 13.2 % (11.5-14.5); White Blood Cell Count 8.3 10^3/uL (4.8-10.8)
[2025-01-02] MEDS: ZETIA 10 MG PO (08:34)
[2025-01-02] MEDS: DECADRON 4 MG IV (08:34)
[2025-01-02] MEDS: VIBRAMYCIN 100 MG PO (08:35)
[2025-01-02] MEDS: TESSALON PERLES 200 MG PO (08:35)
[2025-01-02] MEDS: CARDIZEM CD 180 MG PO (08:35)
[2025-01-02] MEDS: MUCINEX 600 MG PO (08:35)
[2025-01-02] MEDS: LOW STRENGTH ASPIRIN 81 MG PO (08:35)
[2025-01-02] MEDS: IMDUR (EXTENDED RELEASE) 30 MG PO (08:35)
[2025-01-02 08:52] LABS: Blood Urea Nitrogen 37 mg/dl (9-20); Calcium 8.7 mg/dl (8.4-10.2); Carbon Dioxide 22 mmol/L (22-30); Chloride 110 mmol/L (98-107); Estimated Creatinine Clearance 41 ml/min; Glucose 112 mg/dl (70-99); Potassium 4.1 mmol/L (3.5-5.1); Sodium 139 mmol/L (135-145)
[2025-01-02 11:05] VITALS: BP 113/64
--- NOTE | 2025-01-02 12:27 | W.PN.HOSP.TC ---
Addendum entered and electronically signed by Moe Mars MD 01/02/25 15:49:
[id number]
Original Note:
Today's Communication/Plan
-
Pulm nodules f/u
INR f/u closely; hold coumadin; f/u with coumadin clinic
abx course - 7 days total
Incentive Lcai, Acapella
Pred taper
pulm f/u
pcp f/u
Assessment / Plan
Assessment / Plan
COPD exacerbation
Acute hypoxic respiratory insufficiency
Severe Pneumonia
-Decadron 4 mg every 8, already got 10 mg in ER - pred taper upon DC;
- Maintain on nebulizer therapy
-Abx, Cefdinir and doxy to complete 7 day course total
-Wean O2 - dc on 1L, wean o2
-inhalers as per pulm, not on any inpatient
Hypothyroidism
- Maintain on home dose of levothyroxine once patient family can bring medication list
A-fib/flutter
- Presumed paroxysmal currently in sinus rhythm
- Patient on diltiazem dose of which is unknown. Needs to be restarted once information available
Supratherapeutic INR
- Patient takes warfarin managed by Coumadin clinic at [place]
- No recent change in warfarin dose
- INR lowered down to 5.85;
-holding on coumadin, f/u with INR clinic within 24 hours; patient and patients family understand risk
-no overt bleed; will hold on reversal
Small solid pulmonary nodules (7.4 mm in the lingula).
-f/u outpt
Full code
More than 30 minutes spent in discharge including
Final examination of the patient
Summarizing hospital stay
Instructions for continuing care to all relevant caregivers
Preparation of discharge records, prescriptions, and referral forms
Total time spent (in minutes): 36
Anticipated Discharge: Today
Subjective/Interval History
-
Date of Service: January 02, 2025
no acute events overnight
Objective Data
-
Labs:
Laboratory Results
01/02/25
06:48
WBC 8.3
Hgb 15.1
Hct 42.5
Plt Count 225 D
PT 51.4 H
INR 5.85 H* D
Sodium 139
Potassium 4.1
Chloride 110 H
Carbon Dioxide 22
BUN 37 H
Creatinine 1.3
Glucose 112 H
Calcium 8.7
Vital Signs:
Vital Signs
Temp Pulse Resp BP Pulse Ox
97.5 F 76 20 113/64 98
01/02/25 11:05 01/02/25 11:05 01/02/25 11:05 01/02/25 11:05 01/02/25 11:05
I&O
01/01/25 01/02/25 01/03/25
06:59 06:59 06:59
Intake Total 240 / 240 1635 / 1635
Output Total 1225 / 1225 300 / 300
Balance -985 / -985 1335 / 1335
Review of Systems
-
Respiratory: Reports Cough and Trouble Breathing
Cardiac: Reports No Symptoms
Abdomen/GI: Reports No Symptoms
Physical Exam
-
HEENT: Oxygen (on 1L NC)
Respiratory: Wheezes
Cardiac: Regular Rhythm and S1/S2; Negative Murmur or Rub
Musculoskeletal: No Edema
Neuro: Awake, Alert, Oriented, No Motor Deficits and Nonfocal/Grossly Intact
Psych: Calm
Data Reviewed
-
Diagnostic Radiology: Report Reviewed by me
CT Scan: Report Reviewed by me
Labs: Labs Reviewed by me
--- NOTE | 2025-01-02 12:43 | CM ---
Initial assessment completed with patient with , daughter and D-I-L present. Patient lives with his in a 1 story home plus basement with 5 steps to enter. 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 He does have 3 RW's
in the home. He does drive. No services in the home. Was in the [employer]. Does have a HC-POA. PCP is Hipolito Jorge with [facility] and Pharmacy is [facility] in [place]. Discharge POC: Home with [facility] for VN. Referral sent.
--- NOTE | 2025-01-02 12:56 | W.PN.PUL3 ---
Today's Communication / Plan
-
Complete 7 days of antibiotics
Prednisone taper 40 mg and decrease by 10 mg every 48 hours to off
Transition back to inhalers apparently on a Spiriva
May continue incentive spirometry/Acapella at home
Will need radiographic follow-up in about 4 to 6 weeks-patient aware. Will follow-up with his primary [employer] seal
Nebulizer machine with DuoNebs 3 times a day as needed until improved.
Discharge today
Sign off
Assessment
-
Assessment: 84-year-old male former tobacco smoker with [id number] history with a past medical history of COPD/emphysema, A-fib on Coumadin, prostate cancer, hypercholesterolemia, AAA and hypothyroidism who presents with cough and shortness of
breath. Has had a cough for about a month. PCP started him a steroid taper last week in addition to albuterol and Mucinex which minimally improved his symptoms. He does not use oxygen at home. He follows with a navy seal at [facility], Dr. Alberto. He has had diarrhea for the past week but has been improving. Here in the ER he was afebrile. His INR was >8, creatinine 1.6, and COVID-19 antigen negative. Flu swab negative and blood cultures collected. Imaging showed
retrocardiac opacity, and CT chest shows severe upper lobe predominant emphysema with significant bronchial wall thickening in the lower lobes with bibasilar opacification significant for a bronchopneumonia. Given ceftriaxone, Doxy, DuoNebs and
Decadron in the ER. Admitted to the hospitalist service and pulmonary service now consulted for additional management/recommendations.
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
Impression:
#Severe bilateral lower lobe bronchopneumonia
#Severe emphysema with COPD exacerbation due to above
#Former tobacco smoker with 20-tlcv-vazh history, quit at age 52
#Supratherapeutic INR
#Atrial fibrillation on Coumadin
#SARAI
Plan:
Clinically improved:Afebrile without leukocytosis.
No longer bronchospastic.
-
Complete total 7 days of antibiotics.
All cultures negative
- Aspiration precautions
- Recommend repeat imaging in 4-6 weeks to assure his pneumonia is improving/has resolved (he can get this done through his PCP or his private navy seal at [facility])
-Transition to prednisone taper 40 mg and decrease by 10 mg every 48 hours to off.
- Continue DuoNebs with prn nebulized bronchodilators-can discharge on this medication. Patient will need to purchase a nebulizer in the pharmacy.
- He says he takes Spiriva and prn albuterol at home; follows with Dr. Alberto with [facility] and he should continue following up with them after discharge
-Oxygen has been weaned off.
-Incentive spirometer encouraged q1hr while awake-May continue home until completely recovered
- Continue Acapella device
- He also has postnasal drip: Advised to buy Flonase [id number].
Okay to discharge from the pulmonary perspective.
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
Sign off
Data:
CT chest without contrast 12/31/2024:
1. SEVERE BILATERAL LOWER LOBE BRONCHITIS and MILD BILATERAL LOWER LOBE PNEUMONIA.
2. SEVERE BILATERAL UPPER LOBE EMPHYSEMA.
3. Severe calcific atherosclerotic plaque in the craig coronary arteries and thoracic aorta.
4. Previous CABG surgery.
5. Small solid pulmonary nodules (7.4 mm in the lingula).
Subjective Data
-
Date of Service:
Date of Service: January 02, 2025
Chief Complaint: Pulmonary Follow Up
Objective Data
Data Reviewed
Vital Signs / I&O / Oxygen:
Vital Signs
Temp Pulse Resp BP Pulse Ox
97.5 F 76 20 113/64 98
01/02/25 11:05 01/02/25 11:05 01/02/25 11:05 01/02/25 11:05 01/02/25 11:05
Intake and Output
01/01/25 01/02/25 01/03/25
06:59 06:59 06:59
Intake Total 240 / 240 1635 / 1635
Output Total 1225 / 1225 300 / 300
Balance -985 / -985 1335 / 1335
SaO2 98
Nasal Cannula flow liters per 1
minute
Physical Exam
General: Respiratory Distress (negative), Comfortable, Chills (negative) and Sweats (negative)
HEENT: Normocephalic and Anicteric
Cardiovascular: S1-S2 and Peripheral Edema (Trace lower extremity edema bilaterally)
Respiratory: Wheeze (negative), Crackles (Bibasilar), Rhonchi (negative) and Non-Labored Respirations
GI: Soft, Non Distended, Non Tender and Normal Bowel Sounds
Neurology: AO x 3 and Tremors (negative)
Skin: Warm, Dry, Cyanosis (negative) and Jaundice (negative)
Labs/Micro/Reports
Lab Data
01/02/25 06:48
01/02/25 06:48
Laboratory Results
01/02/25
06:48
PT 51.4 H
INR 5.85 H* D
Microbiology
12/30/24 16:00 Blood/Venous Blood Culture - Preliminary
No Growth in 48 hours- Final report to follow
12/30/24 16:00 Blood/Venous Blood Culture - Preliminary
No Growth in 48 hours- Final report to follow
12/30/24 17:14 Sputum Respiratory Culture - Final
Usual Respiratory Denise
12/30/24 17:14 Sputum Gram Stain - Final
12/30/24 15:50 Nasal Swab Influenza Types A & B (HONORIO) - Final
Negative for Influenza A & B, NAAT
Negative results must be combined with clinical observations
and patient history.
Nucleic Acid Amplification test (NAAT)performed on the
[employer] platform.
--- NOTE | 2025-01-02 12:58 | CM ---
Patient has been medically cleared for discharge to home with [facility] RN and PT/OT services. O2 walk test shows 91% PO2 on ambulation. No need for O2 at home. Family will transport home.
--- NOTE | 2025-01-02 13:31 | W.DS.TRANS ---
DC Summary - Inspector Penetrant
-
Discharge Instructions:
Sleep Apnea Risk Intermediate
Discharge Diagnosis/Procedures COPD flare up
Acute hypoxic respiratory insufficiency
Pneumonia
Diet Low Cholesterol,Low Fat
Activity As tolerated
Blood Work INR check within 24 hours
Instructions:
Stand-Alone Forms:
Changes to Home Medications: Yes
Discharge Medications:
DC Medications w/original date entered in cocone
aspirin 81 mg tablet 81 mg PO DAILY Blood Clot Prevention/Tx 12/30/24
atorvastatin 20 mg tablet 20 mg PO HS High Cholesterol 12/30/24
diltiazem HCl 180 mg capsule,extended release 24 hr (Cardizem CD) 180 mg PO DAILY Blood Pressure 12/30/24
ezetimibe 10 mg tablet (Zetia) 10 mg PO DAILY High Cholesterol 12/30/24
isosorbide mononitrate 30 mg tablet,extended release 24 hr 30 mg PO DAILY Blood Pressure 12/30/24
levothyroxine 75 mcg tablet 75 mcg PO DAILY@06 Thyroid 12/30/24
warfarin 5 mg tablet 5 mg PO DAILY Blood Clot Prevention/Tx 12/30/24
Held on 01/02/25. Instructions: Resume on 01/06/25. hold until cleared by coumadin clinic
cefdinir 300 mg capsule 300 mg PO Q12H 5 days #10 caps 01/02/25
doxycycline hyclate 100 mg capsule 100 mg PO Q12 5 days #10 caps 01/02/25
fluticasone propionate 50 mcg/actuation nasal spray,suspension (Flonase Allergy Relief) 1 spray intranasal DAILY #16 grams 01/02/25
ipratropium 0.5 mg-albuterol 3 mg (2.5 mg base)/3 mL nebulization soln 3 ml inhalation Q8H PRN shortness of breath #180 mL 01/02/25
prednisone 10 mg tablet See Rx Instructions .Route .COMPLEX #30 tabs 01/02/25
tiotropium bromide 2.5 mcg/actuation mist for inhalation (Spiriva Respimat) 2 inh inhalation DAILY #4 grams 01/02/25
Home Medication Changes
cefdinir 300 mg capsule 300 mg PO Q12H 5 days #10 caps 01/02/25
doxycycline hyclate 100 mg capsule 100 mg PO Q12 5 days #10 caps 01/02/25
fluticasone propionate 50 mcg/actuation nasal spray,suspension (Flonase Allergy Relief) 1 spray intranasal DAILY #16 grams 01/02/25
ipratropium 0.5 mg-albuterol 3 mg (2.5 mg base)/3 mL nebulization soln 3 ml inhalation Q8H PRN shortness of breath #180 mL 01/02/25
prednisone 10 mg tablet See Rx Instructions .Route .COMPLEX #30 tabs 01/02/25
tiotropium bromide 2.5 mcg/actuation mist for inhalation (Spiriva Respimat) 2 inh inhalation DAILY #4 grams 01/02/25
Pending Results: No
== END 2025-01-02 14:20 | disposition home health service (06) | DRG 190 ==
LOC: 4 EAST ACU 18:43
PROVIDERS: Emergency Medicine; Student in an Organized Health Care Education/Training Program; ADMITTING PHYSICIAN Hospitalist; ATTENDING PHYSICIAN Internal Medicine; CONSULT PHYSICIAN Internal Medicine Critical Care Medicine; EMERGENCY PHYSICIAN Emergency Medicine; FAMILY PHYSICIAN Internal Medicine
DX: J44.1 Chronic obstructive pulmonary disease with (acute) exacerbation (principal); J18.0 Bronchopneumonia, unspecified organism; N17.9 Acute kidney failure, unspecified; R09.02 Hypoxemia; Z11.52 Encounter for screening for COVID-19; E78.00 Pure hypercholesterolemia, unspecified; E03.9 Hypothyroidism, unspecified; I48.91 Unspecified atrial fibrillation; Z79.01 Long term (current) use of anticoagulants; Z87.891 Personal history of nicotine dependence; Z90.49 Acquired absence of other specified parts of digestive tract; Z95.1 Presence of aortocoronary bypass graft; Z88.5 Allergy status to narcotic agent; Z85.46 Personal history of malignant neoplasm of prostate; I25.10 Atherosclerotic heart disease of native coronary artery without angina pectoris; J43.9 Emphysema, unspecified; J44.0 Chronic obstructive pulmonary disease with (acute) lower respiratory infection; Z79.890 Hormone replacement therapy; Z79.899 Other long term (current) drug therapy
CPT/HCPCS: 71046; 71250; 80048; 80053; 83880; 85025; 85610; 87040; 87070; 87205; 87502; 87811; 93005; 94640; 96374; 96375; 97163; 97166; 99291